=== PATIENT | female | born 1955 | race American Indian/Alaskan Native ===

== ENCOUNTER 2021-02-10 16:02 | Observation (INO) | payer BC ==
[2021-02-10] MEDS ORDERED: cloNIDine 0.2 MG TAB PO ONE (16:34)
--- NOTE | 2021-02-10 17:16 | Emergency Department Report ---
HPI - General Chief Complaint: High BP Time Seen by Provider: 02/10/21 16:34 - HPI HPI: Room 36 The patient is a 65-year-old female present with a chief complaint of hypertension. The patient states over the weekend she developed blurred vision and felt off balance. Patient states she had a few episodes of nausea vomiting. Patient has a history of hypertension but has been off of her antihypertensive for several months secondary to inability to afford them/insurance issues. Patient states she checked her blood pressure at home and got a systolic that range from 170s to 200 prompting her to come to the emergency department. Patient denies eye pain. ED Past Medical Hx - Past Medical History Hx Hypertension: Yes Hx Diabetes: No (Borderline diabetes) - Surgical History Additional Surgical History: x2 - Family History Family history: no significant - Social History Smoking Status: Former Smoker (None times months) Substance Use Type: None (Denies illicit drug use), Alcohol (Frequently) - Medications Home Medications: Home Medications Medication Instructions Recorded Confirmed Last Taken Type No Known Home Medications [No 02/10/21 02/10/21 Unknown History Reported Home Medications] ED Review of Systems ROS: Stated complaint: HIGH B/P WITH BLURRED VISION Other details as noted in HPI Constitutional: no symptoms reported Eyes: vision change ENT: denies: throat pain Respiratory: no symptoms reported Cardiovascular: denies: chest pain Endocrine: no symptoms reported Gastrointestinal: nausea, vomiting Genitourinary: denies: dysuria Musculoskeletal: denies: back pain Neurological: denies: headache, paresthesias Physical Exam - Physical Exam Vital Signs: Vital Signs 02/10/21 02/10/21 02/10/21 16:05 16:45 16:54 Temperature 99.3 F Pulse Rate 106 H 87 Respiratory 19 Rate Blood Pressure 176/100 187/106 Blood Pressure [Left] O2 Sat by Pulse 98 100 Oximetry 02/10/21 02/10/21 16:58 16:59 Temperature 98.3 F 98.3 F Pulse Rate 91 H 98 H Respiratory 14 14 Rate Blood Pressure 187/106 Blood Pressure 187/106 [Left] O2 Sat by Pulse 99 99 Oximetry Physical Exam: GENERAL: The patient is well-developed well-nourished female lying on stretcher not appearing to be in acute distress. [] HEENT: Normocephalic. Atraumatic. Extraocular motions are intact except OS will not adduct past midline. Patient has moist mucous membranes. NECK: Supple. Trachea midline CHEST/LUNGS: Clear to auscultation. There is no respiratory distress noted. HEART/CARDIOVASCULAR: Regular. There is no tachycardia. There is no gallop rub or murmur. ABDOMEN: Abdomen is soft, nontender. Patient has normal bowel sounds. There is no abdominal distention. SKIN: There is no rash. There is no edema. There is no diaphoresis. NEURO: The patient is awake, alert, and oriented. The patient is cooperative. Cranial nerves II through XII grossly intact except OS does not adduct past midline. Normal sensation to light touch throughout. Patient is able to hold either upper extremity at 45 degree angle for 10-second count without drift. Patient is able to hold either lower extremity at 30 degree angle for 5-second count without drift. The patient has normal speech. GCS 15 NIHSS= 1 MUSCULOSKELETAL: There is no evidence of acute injury. ED Course Vital Signs 02/10/21 02/10/21 02/10/21 16:05 16:45 16:54 Temperature 99.3 F Pulse Rate 106 H 87 Respiratory 19 Rate Blood Pressure 176/100 187/106 Blood Pressure [Left] O2 Sat by Pulse 98 100 Oximetry 02/10/21 02/10/21 16:58 16:59 Temperature 98.3 F 98.3 F Pulse Rate 91 H 98 H Respiratory 14 14 Rate Blood Pressure 187/106 Blood Pressure 187/106 [Left] O2 Sat by Pulse 99 99 Oximetry ED Medical Decision Making - Lab Data Result diagrams: 02/10/21 17:09 02/10/21 17:09 Laboratory Tests 02/10/21 02/10/21 02/10/21 17:09 17:09 17:09 WBC 7.0 RBC 4.32 Hgb 13.3 Hct 40.8 MCV 94 MCH 31 MCHC 33 RDW 13.3 Plt Count 190 Lymph % (Auto) 38.9 H [place] % (Auto) 7.9 H Eos % (Auto) 0.4 Baso % (Auto) 0.0 Lymph # (Auto) 2.7 [place] # (Auto) 0.5 Eos # (Auto) 0.0 Baso # (Auto) 0.0 Seg Neutrophils % 52.8 Seg Neutrophils # 3.7 PT 14.1 INR 0.98 APTT 27.2 Thrombin Time 18.1 Sodium 144 Potassium 3.7 Chloride 106.1 Carbon Dioxide 22 Anion Gap 20 BUN 16 Creatinine 0.9 Estimated GFR > 60 BUN/Creatinine Ratio 18 Glucose 114 H Calcium 9.4 - EKG Data -: EKG Interpreted by Md EKG shows normal: sinus rhythm Rate: normal - EKG Data When compared to previous EKG there are: previous EKG unavailable Interpretation: other (No ischemic changes seen) - Radiology Data Radiology results: report reviewed (CT head), image reviewed (CT head) [facility] [address] [place] [address] Cat Scan Report Signed Patient: TOMASA AL MR#: [id number] : 1955 Acct:[id number] Age/Sex: 65 / F ADM Date: 02/10/21 Loc: ED Attending Dr: Ordering Physician: ZITA HUGHES MD Date of Service: 02/10/21 Procedure(s): CT head/brain wo con Accession Number(s): [id number] cc: ZITA HUGHES MD . CT head/brain wo con INDICATION / CLINICAL INFORMATION: 65 years Female; HTN, poor left eye adduction, possible MANAN. TECHNIQUE: Routine CT head without contrast. All CT scans at this location are performed using CT dose reduction for ALARA by means of automated exposure control. COMPARISON: None. FINDINGS: BRAIN / INTRACRANIAL CONTENTS: No acute hemorrhage, mass effect, midline shift, hydrocephalus, or acute, large territorial infarct. Mild, diffuse cerebral and cerebellar atrophy. There are moderate areas of decreased attenuation in the white matter of the cerebral hemispheres, as well as the gangliocapsular regions. These are nonspecific findings and may be related to microangiopathy (hypertension, diabetes, atherosclerosis), given the patient's age. It might be difficult to evaluate for small areas of ischemia without diffusion imaging by MRI. Pontine disease noted. CRANIOCERVICAL JUNCTION: No significant abnormality. ORBITS: No significant abnormality of visualized orbits. SINUSES / MASTOIDS: Mild mucosal thickening in the ethmoids. ADDITIONAL FINDINGS: No significant atherosclerotic disease appreciated. IMPRESSION: 1. No focal mass, hemorrhage, hydrocephalus, or acute, large territorial infarct. Follow-up with diffusion imaging by MRI, as clinically warranted. Signer Name: Mikel Altamirano MD, III Signed: 02/10/2021 6:00 PM Workstation Name: [email or web address] Transcribed By: HR Dictated By: Mikel Altamirano MD Electronically Authenticated By: Mikel Altamirano MD Signed Date/Time: 02/10/211799 DD/ 57 TD/TT: Print Cancel - Differential Diagnosis Internuclear ophthalmoplegia, hypertensive urgency Critical care attestation.: If time is entered above; I have spent that time in minutes in the direct care of this critically ill patient, excluding procedure time. 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 Gómez))
[2021-02-10 17:56] LABS: INR 0.98 (0.87-1.13)
[2021-02-10 17:57] LABS: Eosinophils % (Auto) 0.4 % (0.0-4.3); Hematocrit 40.8 % (30.3-42.9); Hemoglobin 13.3 gm/dl (10.1-14.3); Lymphocytes # (Auto) 2.7 K/mm3 (1.2-5.4); Lymphocytes % (Auto) 38.9 % (13.4-35.0); Mean Corpuscular HGB Conc 33 % (30-34); Mean Corpuscular Volume 94 fl (79-97); Monocytes # (Auto) 0.5 K/mm3 (0.0-0.8); Monocytes % (Auto) 7.9 % (0.0-7.3); Partial Thromboplastin Time 27.2 Sec. (24.2-36.6); Platelet Count 190 K/mm3 (140-440); Red Blood Count 4.32 M/mm3 (3.65-5.03); Red Cell Distribution Width 13.3 % (13.2-15.2); Thrombin Time 18.1 Sec. (15.1-19.6)
[2021-02-10 17:59] LABS: BUN/Creatinine Ratio 18; Blood Urea Nitrogen 16 mg/dL (7-17); Calcium 9.4 mg/dL (8.4-10.2); Hemolysis Index 6
--- NOTE | 2021-02-10 18:04 | Cat Scan Report ---
. CT head/brain wo con INDICATION / CLINICAL INFORMATION: 65 years Female; HTN, poor left eye adduction, possible MANAN. TECHNIQUE: Routine CT head without contrast. All CT scans at this location are performed using CT dos e reduction for ALARA by means of automated exposure control. COMPARISON: None. FINDINGS: BRAIN / INTRACRANIAL CONTENTS: No acute hemorrhage, mass effect, midline shift, hydrocephalus, or acu te, large territorial infarct. Mild, diffuse cerebral and cerebellar atrophy. There are moderate areas of decreased attenuation in the white matter of the cerebral hemispheres, as well as the gangliocapsular regions. These are nonspecific findings and may be related to microangio giorgi (hypertension, diabetes, atherosclerosis), given the patient's age. It might be difficult to ev aluate for small areas of ischemia without diffusion imaging by MRI. Pontine disease noted. CRANIOCERVICAL JUNCTION: No significant abnormality. ORBITS: No significant abnormality of visualized orbits. SINUSES / MASTOIDS: Mild mucosal thickening in the ethmoids. ADDITIONAL FINDINGS: No significant atherosclerotic disease appreciated. IMPRESSION: 1. No focal mass, hemorrhage, hydrocephalus, or acute, large territorial infarct. Follow-up with diff usion imaging by MRI, as clinically warranted. Signer Name: Mikel Altamirano MD, III Signed: 02/10/2021 6:00 PM Workstation Name: [email or web address]
[2021-02-10] MEDS ORDERED: ASPIRIN 325 MG TAB PO ONE (18:54)
[2021-02-10] MEDS ORDERED: METOCLOPRAMIDE 10 MG/2 ML INJ IV PRN (20:36)
[2021-02-10] MEDS ORDERED: oxyCODONE /ACETAMINOPHEN 5-325MG TAB PO PRN (20:36)
[2021-02-10] MEDS ORDERED: ACETAMINOPHEN 325 MG TAB PO PRN (20:36)
[2021-02-10] MEDS ORDERED: ONDANSETRON 4 MG/2 ML INJ IV PRN (20:36)
[2021-02-10] MEDS ORDERED: hydrALAZINE 20 MG/1 ML INJ IV PRN (20:41)
--- NOTE | 2021-02-10 20:43 | History and Physical Report ---
History of Present Illness Date of examination: 02/10/21 Date of admission: 02/10/21 18:56 Chief complaint: Off-balance and blurred vision for 3 days History of present illness: The patient is a 65-year-old female present with a chief complaint of hypertension. The patient states over the weekend she developed blurred vision and felt off balance. Patient states she had a few episodes of nausea vomiting. Patient has a history of hypertension but has been off of her antihypertensive for several months secondary to inability to afford them/insurance issues. Patiriley nt states she checked her blood pressure at home and got a systolic that range from 170s to 200 prompting her to come to the emergency department. Patient denies eye pain. - Past Medical History --Hypertension: Yes --Diabetes: No (Borderline diabetes) - Surgical History Additional Surgical History: x2 - Family History Family history: no significant - Social History Smoking Status: Former Smoker (None times months) Substance Use Type: None (Denies illicit drug use), Alcohol (Frequently) - Medications Home Medications: Home Medications Medication Instructions Recorded Confirmed Last Taken Type No Known Home Medications [No 02/10/21 02/10/21 Unknown History Reported Home Medications] Review of Systems ROS: Stated complaint: HIGH B/P WITH BLURRED VISION Other details as noted in HPI Constitutional: no symptoms reported Eyes: vision change ENT: denies: throat pain Respiratory: no symptoms reported Cardiovascular: denies: chest pain Endocrine: no symptoms reported Gastrointestinal: nausea, vomiting Genitourinary: denies: dysuria Musculoskeletal: denies: back pain Neurological: denies: headache, paresthesias Medications and Allergies Allergies Allergy/AdvReac Type Severity Reaction Status Date / Time No Known Allergies Allergy Verified 02/10/21 17:00 Home Medications Medication Instructions Recorded Confirmed Last Taken Type No Known Home Medications [No 02/10/21 02/10/21 Unknown History Reported Home Medications] Exam - Constitutional Vitals: Temp Pulse Resp BP Pulse Ox 98.2 F 56 L 20 172/85 98 02/10/21 19:55 02/10/21 19:55 02/10/21 19:55 02/10/21 19:55 02/10/21 19:55 General appearance: Present: no acute distress, well-nourished - EENT Eyes: Present: PERRL ENT: hearing intact, clear oral mucosa - Neck Neck: Present: supple, normal ROM - Respiratory Respiratory effort: normal Respiratory: bilateral: CTA - Cardiovascular Heart rate: 78 Rhythm: regular Heart Sounds: Present: S1 & S2. Absent: rub, click - Extremities Extremities: pulses symmetrical, No edema Peripheral Pulses: within normal limits - Abdominal General gastrointestinal: Present: soft, non-tender, non-distended, normal bowel sounds Female genitourinary: Present: normal - Integumentary Integumentary: Present: clear, warm, dry - Musculoskeletal Musculoskeletal: gait normal, strength equal bilaterally - Psychiatric Psychiatric: appropriate mood/affect, intact judgment & insight - Neurologic Neurologic: CNII-XII intact, moves all extremities - Allied Health Allied health notes reviewed: nursing, case management HEART Score - HEART Score Age: 45-65 Risk factors: 1-2 risk factors Troponin: < normal limit - Critical Actions Critical Actions: 0-3 pts:0.9-1.7%risk of adverse cardiac event.Candidate for discharge Results - Labs CBC & Chem 7: 02/10/21 17:09 02/10/21 17:09 Labs: Laboratory Last Values WBC 7.0 K/mm3 (4.5-11.0) 02/10/21 17:09 RBC 4.32 M/mm3 (3.65-5.03) 02/10/21 17:09 Hgb 13.3 gm/dl (10.1-14.3) 02/10/21 17:09 Hct 40.8 % (30.3-42.9) 02/10/21 17:09 MCV 94 fl (79-97) 02/10/21 17:09 MCH 31 pg (28-32) 02/10/21 17:09 MCHC 33 % (30-34) 02/10/21 17:09 RDW 13.3 % (13.2-15.2) 02/10/21 17:09 Plt Count 190 K/mm3 (140-440) 02/10/21 17:09 Lymph % (Auto) 38.9 % (13.4-35.0) H 02/10/21 17:09 [place] % (Auto) 7.9 % (0.0-7.3) H 02/10/21 17:09 Eos % (Auto) 0.4 % (0.0-4.3) 02/10/21 17:09 Baso % (Auto) 0.0 % (0.0-1.8) 02/10/21 17:09 Lymph # (Auto) 2.7 K/mm3 (1.2-5.4) 02/10/21 17:09 [place] # (Auto) 0.5 K/mm3 (0.0-0.8) 02/10/21 17:09 Eos # (Auto) 0.0 K/mm3 (0.0-0.4) 02/10/21 17:09 Baso # (Auto) 0.0 K/mm3 (0.0-0.1) 02/10/21 17:09 Seg Neutrophils % 52.8 % (40.0-70.0) 02/10/21 17:09 Seg Neutrophils # 3.7 K/mm3 (1.8-7.7) 02/10/21 17:09 PT 14.1 Sec. (12.2-14.9) 02/10/21 17:09 INR 0.98 (0.87-1.13) 02/10/21 17:09 APTT 27.2 Sec. (24.2-36.6) 02/10/21 17:09 Thrombin Time 18.1 Sec. (15.1-19.6) 02/10/21 17:09 Sodium 144 mmol/L (137-145) 02/10/21 17:09 Potassium 3.7 mmol/L (3.6-5.0) 02/10/21 17:09 Chloride 106.1 mmol/L (98-107) 02/10/21 17:09 Carbon Dioxide 22 mmol/L (22-30) 02/10/21 17:09 Anion Gap 20 mmol/L 02/10/21 17:09 BUN 16 mg/dL (7-17) 02/10/21 17:09 Creatinine 0.9 mg/dL (0.6-1.2) 02/10/21 17:09 Estimated GFR > 60 ml/min 02/10/21 17:09 BUN/Creatinine Ratio 18 % 02/10/21 17:09 Glucose 114 mg/dL (65-100) H 02/10/21 17:09 Calcium 9.4 mg/dL (8.4-10.2) 02/10/21 17:09 Short CBC 02/10/21 Range/Units 17:09 WBC 7.0 (4.5-11.0) K/mm3 Hgb 13.3 (10.1-14.3) gm/dl Hct 40.8 (30.3-42.9) % Plt Count 190 (140-440) K/mm3 [facility] 02/10/21 17:09 Sodium 144 Potassium 3.7 Chloride 106.1 Carbon Dioxide 22 BUN 16 Creatinine 0.9 Glucose 114 H Calcium 9.4 Short CBC 02/10/21 Range/Units 17:09 WBC 7.0 (4.5-11.0) K/mm3 Hgb 13.3 (10.1-14.3) gm/dl Hct 40.8 (30.3-42.9) % Plt Count 190 (140-440) K/mm3 [facility] 02/10/21 17:09 Sodium 144 Potassium 3.7 Chloride 106.1 Carbon Dioxide 22 BUN 16 Creatinine 0.9 Glucose 114 H Calcium 9.4 - Imaging and Cardiology Imaging and Cardiology: hCG No focal acute findings Assessment and Plan Advance Directives: Yes (Full code) VTE prophylaxis?: Chemical Plan of care discussed with patient/family: Yes - Patient Problems (1) Hypertensive emergency Current Visit: Yes Status: Acute Plan to address problem: Patient is noncompliant with her medications Patient started on valsartan 160 every 12 hours Patient started on Coreg 6.25 every 12 hours Patient also initiated on IV hydralazine 10 mg every 3 hours as needed (2) TIA (transient ischemic attack) Current Visit: Yes Status: Acute Plan to address problem: Complains of blurred vision and possible diplopia when looking to the left side Possible internuclear ophthalmoplegia Neurology consult requested Echocardiogram and carotid duplex scan (3) Internuclear ophthalmoplegia of left eye Current Visit: Yes Status: Acute Plan to address problem: Doubt the diagnosis of internuclear ophthalmoplegia Patient does not have constant diplopia on looking to the left right We will defer to neurology (4) T2DM (type 2 diabetes mellitus) Current Visit: Yes Status: Chronic Qualifiers: Diabetes mellitus care home insulin use: unspecified care home insulin use status Plan to address problem: Coverage for now Check hemoglobin A1c (5) DVT prophylaxis Current Visit: Yes Status: Acute Plan to address problem: On anticoagulation GI prophylaxis
[2021-02-10] MEDS: VALSARTAN 160MG TAB PO SCH (21:34)
[2021-02-10] MEDS: FAMOTIDINE 20 MG TAB PO SCH (21:35)
[2021-02-10] MEDS: carvediloL 6.25 MG TAB PO SCH (21:44)
[2021-02-10] MEDS: HEPARIN 5,000 UNIT/1 ML VIAL SUB-Q SCH (21:45)
[2021-02-11 06:25] LABS: Eosinophils % (Auto) 0.7 % (0.0-4.3); Hematocrit 36.7 % (30.3-42.9); Hemoglobin 12.2 gm/dl (10.1-14.3); Lymphocytes % (Auto) 53.3 % (13.4-35.0); Mean Corpuscular HGB Conc 33 % (30-34); Mean Corpuscular Volume 95 fl (79-97); Monocytes # (Auto) 0.4 K/mm3 (0.0-0.8); Monocytes % (Auto) 7.2 % (0.0-7.3); Platelet Count 184 K/mm3 (140-440); Red Blood Count 3.87 M/mm3 (3.65-5.03); Red Cell Distribution Width 12.8 % (13.2-15.2)
[2021-02-11 07:03] LABS: Alanine Aminotransferase 16 units/L (7-56); Albumin 3.7 g/dL (3.9-5); Blood Urea Nitrogen 14 mg/dL (7-17); Calcium 8.9 mg/dL (8.4-10.2); Hemolysis Index 4
[2021-02-11 07:14] LABS: BUN/Creatinine Ratio 20
[2021-02-11] MEDS ORDERED: POTASSIUM CHLORIDE ER 20 MEQ TAB PO SCH (09:00)
[2021-02-11] MEDS: carvediloL 6.25 MG TAB PO SCH ×2 (09:22→21:43)
[2021-02-11] MEDS: FAMOTIDINE 20 MG TAB PO SCH ×2 (09:22→21:44)
[2021-02-11] MEDS: HEPARIN 5,000 UNIT/1 ML VIAL SUB-Q SCH ×2 (09:22→21:44)
[2021-02-11] MEDS: VALSARTAN 160MG TAB PO SCH ×2 (09:24→21:43)
--- NOTE | 2021-02-11 11:43 | Electrocardiograph Report ---
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
--- NOTE | 2021-02-11 13:22 | Vascular Lab Report ---
DUPLEX DOPPLER ULTRASOUND CAROTID, BILATERAL INDICATION / CLINICAL INFORMATION: Blurred vision + hypertensive emergency vs TIA. COMPARISON: None available. FINDINGS: RIGHT CAROTID: Mild calcified atherosclerotic plaque. - PLAQUE ESTIMATE (%): < 50% - CCA velocity: 47 cm/sec. - ICA peak systolic velocity: 73 cm/sec. - ICA/CCA PSV Ratio: Less than 2. Right Vertebral Artery: Antegrade flow. LEFT CAROTID: Mild calcified atherosclerotic plaque. Tortuous ICA. - PLAQUE ESTIMATE (%): < 50% - CCA velocity: 44 cm/sec. - ICA peak systolic velocity: 119 cm/sec. - ICA/CCA PSV Ratio: 2.7 Left Vertebral Artery: Antegrade flow. IMPRESSION: 1. Right Internal Carotid Artery: Less than 50% diameter stenosis. 2. Left Internal Carotid Artery: Less than 50% diameter stenosis. Velocity criteria are extrapolated from diameter data as defined by the Society of Radiologists in Ul trasound Consensus Conference, Radiology 2003; 229;340-346. NO STENOSIS (NORMAL) - Plaque = none; ICA PSV < 125 cm/sec; ICA/CCA PSV Ratio < 2.0 <50% STENOSIS - Plaque < 50%; ICA PSV < 125 cm/sec; ICA/CCA PSV Ratio < 2.0 50-69% STENOSIS - Plaque > 50%; ICA PSV = 125-230 cm/sec; ICA/CCA PSV Ratio = 2.0-4.0 >70% BUT <100% STENOSIS - Plaque > 50%; ICA PSV > 230 cm/sec; ICA/CCA PSV Ratio > 4.0 NEAR OCCLUSION - Plaque = visible lumen; ICA PSV = high/low/none; ICA/CCA PSV Ratio = variable TOTAL OCCLUSION - Plaque = no lumen; ICA PSV = none; ICA/CCA PSV Ratio = N/A Signer Name: Luke Savage MD Signed: 02/11/2021 1:18 PM Workstation Name: [id number]
--- NOTE | 2021-02-11 14:05 | Progress Note ---
Assessment and Plan Assessment and plan: Patient is a 65-year-old female past medical history of uncontrolled hypertension (nonadherent with medications) and prediabetes who presented with blurry vision, nausea, vomiting, and sensations of being "off balance" who presented in the ED and was found to have a systolic blood pressure >200. The patient is being managed for hypertensive emergency versus TIA. #Hypertensive emergency #Medication noncompliance #Medication noncompliance counseling -Significant improvement in overall blood pressure. -Patient admits to medication nonadherence. Patient counseled about importance of medication compliance and possible sequelae. Patient expressed unde rstanding. Time: +10 minutes -Continue valsartan 160 mg every 12 hours, Coreg 6.25 mg every 12 hours, and IV hydralazine 10 mg every 3 hours as needed. -Continue to monitor #Possible TIA #Blurred vision #Possible internuclear ophthalmoplegia of left eye -Pending TTE and carotid Dopplers -Neurology consulted; pending recs -Low clinical suspicion of TIA; however, blurred vision can be secondary to uncontrolled hypertension. Can consider internuclear ophthalmoplegia. -Continue to monitor #Prediabetes -Pending hemoglobin A1c -Blood glucose goal less than 140 while inpatient (if patient still has prediabetes) -Continue to monitor #Advanced care planning -Disease education conducted, care plan discussed, diagnoses discussed, prognosis discussed, and patient acknowledges understanding with care plan -Time: +30 minutes #Discharge planning -If blood pressure remains within normal limits tomorrow, patient can be discharged tomorrow Disposition Plan: Continue medical management. Possible discharge tomorrow. Total Time Spent with Patient (Minutes): 45 minutes History Interval history: No acute events overnight. Hospitalist Physical - Constitutional Vitals: Temp Pulse Resp BP Pulse Ox 98.2 F 47 L 18 146/83 99 02/11/21 08:50 02/11/21 08:50 02/11/21 08:50 02/11/21 08:50 02/11/21 08:50 General appearance: Present: no acute distress, well-nourished - EENT Eyes: Present: PERRL, EOM intact ENT: hearing intact, clear oral mucosa, dentition normal - Neck Neck: Present: supple, normal ROM - Respiratory Respiratory effort: normal Respiratory: bilateral: CTA - Cardiovascular Rhythm: regular Heart Sounds: Present: S1 & S2 - Extremities Extremities: no ischemia, pulses intact, pulses symmetrical, No edema, normal temperature, normal color Peripheral Pulses: within normal limits - Abdominal General gastrointestinal: soft, non-tender, non-distended, normal bowel sounds - Integumentary Integumentary: Present: clear, warm, dry - Psychiatric Psychiatric: appropriate mood/affect, cooperative - Neurologic Neurologic: CNII-XII intact - Allied Health Allied health notes reviewed: nursing HEART Score - HEART Score Age: 45-65 Risk factors: 1-2 risk factors Troponin: < normal limit - Critical Actions Critical Actions: 0-3 pts:0.9-1.7%risk of adverse cardiac event.Candidate for discharge Results - Labs CBC & Chem 7: 02/11/21 05:04 02/11/21 05:04 Labs: Laboratory Last Values WBC 5.7 K/mm3 (4.5-11.0) 02/11/21 05:04 RBC 3.87 M/mm3 (3.65-5.03) 02/11/21 05:04 Hgb 12.2 gm/dl (10.1-14.3) 02/11/21 05:04 Hct 36.7 % (30.3-42.9) 02/11/21 05:04 MCV 95 fl (79-97) 02/11/21 05:04 MCH 32 pg (28-32) 02/11/21 05:04 MCHC 33 % (30-34) 02/11/21 05:04 RDW 12.8 % (13.2-15.2) L 02/11/21 05:04 Plt Count 184 K/mm3 (140-440) 02/11/21 05:04 Lymph % (Auto) 53.3 % (13.4-35.0) H 02/11/21 05:04 [place] % (Auto) 7.2 % (0.0-7.3) 02/11/21 05:04 Eos % (Auto) 0.7 % (0.0-4.3) 02/11/21 05:04 Baso % (Auto) 0.0 % (0.0-1.8) 02/11/21 05:04 Lymph # (Auto) 3.0 K/mm3 (1.2-5.4) 02/11/21 05:04 [place] # (Auto) 0.4 K/mm3 (0.0-0.8) 02/11/21 05:04 Eos # (Auto) 0.0 K/mm3 (0.0-0.4) 02/11/21 05:04 Baso # (Auto) 0.0 K/mm3 (0.0-0.1) 02/11/21 05:04 Seg Neutrophils % 38.8 % (40.0-70.0) L 02/11/21 05:04 Seg Neutrophils # 2.2 K/mm3 (1.8-7.7) 02/11/21 05:04 PT 14.1 Sec. (12.2-14.9) 02/10/21 17:09 INR 0.98 (0.87-1.13) 02/10/21 17:09 APTT 27.2 Sec. (24.2-36.6) 02/10/21 17:09 Thrombin Time 18.1 Sec. (15.1-19.6) 02/10/21 17:09 Sodium 142 mmol/L (137-145) 02/11/21 05:04 Potassium 3.4 mmol/L (3.6-5.0) L 02/11/21 05:04 Chloride 106.0 mmol/L (98-107) 02/11/21 05:04 Carbon Dioxide 21 mmol/L (22-30) L 02/11/21 05:04 Anion Gap 18 mmol/L 02/11/21 05:04 BUN 14 mg/dL (7-17) 02/11/21 05:04 Creatinine 0.7 mg/dL (0.6-1.2) 02/11/21 05:04 Estimated GFR > 60 ml/min 02/11/21 05:04 BUN/Creatinine Ratio 20 % 02/11/21 05:04 Glucose 113 mg/dL (65-100) H 02/11/21 05:04 Calcium 8.9 mg/dL (8.4-10.2) 02/11/21 05:04 Total Bilirubin 0.40 mg/dL (0.1-1.2) 02/11/21 05:04 AST 21 units/L (5-40) 02/11/21 05:04 ALT 16 units/L (7-56) 02/11/21 05:04 Alkaline Phosphatase 80 units/L (35-129) 02/11/21 05:04 Total Protein 6.0 g/dL (6.3-8.2) L 02/11/21 05:04 Albumin 3.7 g/dL (3.9-5) L 02/11/21 05:04 Albumin/Globulin Ratio 1.6 % 02/11/21 05:04 Bae/IV: Voiding Method Toilet Active Medications - Current Medications Current Medications: Generic Name Dose Route Start Last Admin Trade Name Freq PRN Reason Stop Dose Admin Acetaminophen 650 mg 02/10/21 20:36 Acetaminophen 325 Mg Tab PO Q4H PRN Pain MILD(1-3)/Fever >100.5/[place] Carvedilol 6.25 mg 02/10/21 22:00 02/11/21 09:22 Carvedilol 6.25 Mg Tab PO 6.25 mg BID KIM Administration Famotidine 20 mg 02/10/21 22:00 02/11/21 09:22 Famotidine 20 Mg Tab PO 20 mg BID KIM Administration Heparin Sodium (Porcine) 5,000 unit 02/10/21 22:00 02/11/21 09:22 Heparin 5,000 Unit/1 Ml Vial SUB-Q 5,000 unit Q12HR KIM Administration Hydralazine HCl 10 mg 02/10/21 20:41 Hydralazine 20 Mg/1 Ml Inj IV Q3H PRN Blood Pressure Metoclopramide HCl 10 mg 02/10/21 20:36 Metoclopramide 10 Mg/2 Ml Inj IV Q6H PRN Nausea And Vomiting Ondansetron HCl 4 mg 02/10/21 20:36 Ondansetron 4 Mg/2 Ml Inj IV Q8H PRN Nausea And Vomiting Oxycodone/Acetaminophen 1 tab 02/10/21 20:36 Oxycodone /Acetaminophen 5-325mg Tab PO Q6H PRN Pain, Moderate (4-6) Sodium Chloride 10 ml 02/10/21 22:00 02/11/21 09:22 Sodium Chloride 0.9% 10 Ml Flush Syringe IV 10 ml BID KIM Administration Sodium Chloride 10 ml 02/10/21 20:36 Sodium Chloride 0.9% 10 Ml Flush Syringe IV PRN PRN LINE FLUSH Valsartan 160 mg 02/10/21 21:00 02/11/21 09:24 Valsartan 160mg Tab PO 160 mg Q12H KIM Administration
--- NOTE | 2021-02-11 15:59 | Consultation ---
History of Present Illness Consult date: 02/11/21 Chief complaint: She patient is a 65-year-old female present with a chief complaint of hypertension. The patient states over the weekend she developed blurred vision and felt off balance. Patient states she had a few episodes of nausea vomiting. Patient has a history of hypertension but has been off of her antihypertensive for several months secondary to inability to afford them/insurance issues. Patient states she checked her blood pressure at home and got a systolic that range from 170s to 200 prompting her to come to the emergency department. Patient denies eye pain. Complains of Vision issues , there is left eye droppy eye . Medications and Allergies Allergies Allergy/AdvReac Type Severity Reaction Status Date / Time No Known Allergies Allergy Verified 02/10/21 17:00 Home Medications Medication Instructions Recorded Confirmed Last Taken Type Mv-Mn/Folic Acid/Calcium/Vit K 1 tab PO QDAY 02/11/21 02/11/21 02/08/21 History [Women's 50 Plus Multivit Tab] Trolamine Salicylate [Aspercreme] 1 applicatio TP QDAY 02/11/21 02/11/21 02/08/21 History Active Meds: Active Medications Acetaminophen (Acetaminophen 325 Mg Tab) 650 mg PO Q4H PRN PRN Reason: Pain MILD(1-3)/Fever >100.5/[place] Carvedilol (Carvedilol 6.25 Mg Tab) 6.25 mg PO BID [facility] Last Admin: 02/11/21 09:22 Dose: 6.25 mg Documented by: Famotidine (Famotidine 20 Mg Tab) 20 mg PO BID [facility] Last Admin: 02/11/21 09:22 Dose: 20 mg Documented by: Heparin Sodium (Porcine) (Heparin 5,000 Unit/1 Ml Vial) 5,000 unit SUB-Q Q12HR [facility] Last Admin: 02/11/21 09:22 Dose: 5,000 unit Documented by: Hydralazine HCl (Hydralazine 20 Mg/1 Ml Inj) 10 mg IV Q3H PRN PRN Reason: Blood Pressure Metoclopramide HCl (Metoclopramide 10 Mg/2 Ml Inj) 10 mg IV Q6H PRN PRN Reason: Nausea And Vomiting Ondansetron HCl (Ondansetron 4 Mg/2 Ml Inj) 4 mg IV Q8H PRN PRN Reason: Nausea And Vomiting Oxycodone/Acetaminophen (Oxycodone /Acetaminophen 5-325mg Tab) 1 tab PO Q6H PRN PRN Reason: Pain, Moderate (4-6) Sodium Chloride (Sodium Chloride 0.9% 10 Ml Flush Syringe) 10 ml IV BID [facility] Last Admin: 02/11/21 09:22 Dose: 10 ml Documented by: Sodium Chloride (Sodium Chloride 0.9% 10 Ml Flush Syringe) 10 ml IV PRN PRN PRN Reason: LINE FLUSH Valsartan (Valsartan 160mg Tab) 160 mg PO Q12H [facility] Last Admin: 02/11/21 09:24 Dose: 160 mg Documented by: Physical Examination - Vital Signs Vital Signs: Vital Signs Temp Pulse Resp BP Pulse Ox 99.3 F 106 H 19 176/100 98 02/10/21 16:05 02/10/21 16:05 02/10/21 16:05 02/10/21 16:05 02/10/21 16:05 - Physical Exam Narrative exam: The patient is alert , Left eye droppy , < ? paresis of 6 th nerve diffcult to clearly see on Examination , Gait is Broad Based . Results - Laboratory Findings CBC and BMP: 02/11/21 05:04 02/11/21 05:04 Abnormal Lab Findings: Abnormal Labs 02/10/21 02/10/21 02/11/21 17:09 17:09 05:04 RDW 12.8 L Lymph % (Auto) 38.9 H 53.3 H [place] % (Auto) 7.9 H Seg Neutrophils % 38.8 L Potassium Carbon Dioxide Glucose 114 H Total Protein Albumin 02/11/21 05:04 RDW Lymph % (Auto) [place] % (Auto) Seg Neutrophils % Potassium 3.4 L Carbon Dioxide 21 L Glucose 113 H Total Protein 6.0 L Albumin 3.7 L Assessment and Plan 1. CVA - ? Fiordaliza ? VBI . 2. Needs CTA Brain and Neck W/WO since the patient cannot tolerate a MRI Brain . 3. Risk Factors of CVA - Needs ASA 81 mg + Plavix 75 mg once a day if the CTA is positive. 4. BP Management . 5. Needs a out patient Neuro-opthal consult . 6. Follow up in am. DR. Chávez
[2021-02-12 07:57] LABS: BUN/Creatinine Ratio 23; Blood Urea Nitrogen 18 mg/dL (7-17); Calcium 9.2 mg/dL (8.4-10.2); Hemolysis Index 4
--- NOTE | 2021-02-12 10:20 | Cat Scan Report ---
CT angio head, CT angio neck INDICATION / CLINICAL INFORMATION: 65 years Female; CVA OMNI 350 100 ML. TECHNIQUE: Unenhanced CT of the head initially performed. Thin cut axial images obtained through the head and neck during IV bolus contrast administration. Sagittal, coronal, and 3 plane MIP reconstruct ions performed by the technologist. NASCET type criteria used evaluate stenoses. Automated exposure c ontrol utilized for radiation reduction purposes. . CTA HEAD COMPARISON: None available. FINDINGS: INTERNAL CAROTID ARTERIES: No significant narrowing appreciated. VERTEBROBASILAR SYSTEM: No significant narrowing appreciated. DISTAL BRANCHES: Distal branches of the anterior, middle, and posterior cerebral arteries are fairly symmetric in appearance and number. ANEURYSM: None identified. ADDITIONAL FINDINGS: Remainder of the surrounding soft tissues are grossly normal. IMPRESSION: No significant abnormality on this CTA of the head. CTA NECK COMPARISON: None available. FINDINGS: ARCH: Normal aortic arch branching suggested. CAROTID ARTERIES: The visualized common and internal carotid arteries are widely patent. No stenoses in the carotid bifurcations VERTEBRAL ARTERIES: Codominant vertebral system seen. No significant stenosis appreciated. ADDITIONAL FINDINGS: Remainder of the surrounding soft tissues are grossly normal. IMPRESSION: No significant stenosis appreciated on this CTA of the neck. Signer Name: Lois Fitch MD Signed: 02/12/2021 10:16 AM Workstation Name: [id number]
[2021-02-12] MEDS: carvediloL 6.25 MG TAB PO SCH (10:32)
[2021-02-12] MEDS: VALSARTAN 160MG TAB PO SCH (10:33)
[2021-02-12] MEDS: HEPARIN 5,000 UNIT/1 ML VIAL SUB-Q SCH (10:33)
[2021-02-12] MEDS: FAMOTIDINE 20 MG TAB PO SCH (10:33)
--- NOTE | 2021-02-12 11:17 | Progress Note ---
Assessment and Plan Assessment and plan: Patient is a 65-year-old female past medical history of uncontrolled hypertension (nonadherent with medications) and prediabetes who presented with blurry vision, nausea, vomiting, and sensations of being "off balance" who presented in the ED and was found to have a systolic blood pressure >200. The patient is being managed for hypertensive emergency versus TIA. #Hypertensive emergency #Medication noncompliance #Medication noncompliance counseling -Significant improvement in overall blood pressure. -Patient admits to medication nonadherence. Patient counseled about importance of medication compliance and possible sequelae. Patient expressed understanding. Time: +10 minutes -Continue valsartan 160 mg every 12 hours, Coreg 6.25 mg every 12 hours, and IV hydralazine 10 mg every 3 hours as needed. -Continue to monitor #Possible TIA #Blurred vision #Possible internuclear ophthalmoplegia of left eye -Pending TTE and carotid Dopplers -Neurology consulted; pending recs -Low clinical suspicion of TIA; however, blurred vision can be secondary to uncontrolled hypertension. Can consider internuclear ophthalmoplegia. -Continue to monitor #Prediabetes -Pending hemoglobin A1c -Blood glucose goal less than 140 while inpatient (if patient still has prediabetes) -Continue to monitor #Advanced care planning -Disease education conducted, care plan discussed, diagnoses discussed, pro gnosis discussed, and patient acknowledges understanding with care plan -Time: +30 minutes #Discharge planning -If blood pressure remains within normal limits tomorrow, patient can be discharged tomorrow Disposition Plan: Continue medical management. Possible discharge tomorrow. Total Time Spent with Patient (Minutes): 45 minutes 12/7We will adjust blood pressure for better control,. Unfortunately due to bradycardia cannot adjust Coreg. Will likely start low-dose amlodipine. CTA is negative for any acute pathology. Doubt Padron's palsy. Unfortunately cannot discharge the patient today as she is significantly unsteady on her feet awaiting PT OT evaluation for safe discharge of also discussed with the patient importance of follow-up with a neuro toll relief operator outpatient and possibly have an MRI outpatient as she is claustrophobic severely History Interval history: Patient seen and examined today no acute distress remains with the left eye appears mildly swollen but no edema noted. She still reports unsteady gait blood pressure still uncontrolled Hospitalist Physical - Physical exam Narrative exam: General appearance: Present: no acute distress, well-nourished - EENT Eyes: Present: PERRL, EOM intact left eye with periorbital swelling no edema droopy. ENT: hearing intact, clear oral mucosa, dentition normal - Neck Neck: Present: supple, normal ROM - Respiratory Respiratory effort: normal Respiratory: bilateral: CTA - Cardiovascular Rhythm: regular Heart Sounds: Present: S1 & S2 - Extremities Extremities: no ischemia, pulses intact, pulses symmetrical, No edema, normal temperature, normal color Peripheral Pulses: within normal limits - Abdominal General gastrointestinal: soft, non-tender, non-distended, normal bowel sounds - Integumentary Integumentary: Present: clear, warm, dry - Psychiatric Psychiatric: appropriate mood/affect, cooperative - Neurologic Neurologic: CNII-XII intact - Allied Health Allied health notes reviewed: nursing - Constitutional Vitals: Temp Pulse Resp BP Pulse Ox 98.7 F 58 L 19 173/83 93 02/12/21 08:16 02/12/21 10:32 02/12/21 08:16 02/12/21 10:32 02/12/21 08:16 General appearance: Present: no acute distress, well-nourished HEART Score - HEART Score Age: 45-65 Risk factors: 1-2 risk factors Troponin: < normal limit - Critical Actions Critical Actions: 0-3 pts:0.9-1.7%risk of adverse cardiac event.Candidate for discharge Results - Labs CBC & Chem 7: 02/11/21 05:04 02/12/21 04:42 Labs: Laboratory Last Values WBC 5.7 K/mm3 (4.5-11.0) 02/11/21 05:04 RBC 3.87 M/mm3 (3.65-5.03) 02/11/21 05:04 Hgb 12.2 gm/dl (10.1-14.3) 02/11/21 05:04 Hct 36.7 % (30.3-42.9) 02/11/21 05:04 MCV 95 fl (79-97) 02/11/21 05:04 MCH 32 pg (28-32) 02/11/21 05:04 MCHC 33 % (30-34) 02/11/21 05:04 RDW 12.8 % (13.2-15.2) L 02/11/21 05:04 Plt Count 184 K/mm3 (140-440) 02/11/21 05:04 Lymph % (Auto) 53.3 % (13.4-35.0) H 02/11/21 05:04 [place] % (Auto) 7.2 % (0.0-7.3) 02/11/21 05:04 Eos % (Auto) 0.7 % (0.0-4.3) 02/11/21 05:04 Baso % (Auto) 0.0 % (0.0-1.8) 02/11/21 05:04 Lymph # (Auto) 3.0 K/mm3 (1.2-5.4) 02/11/21 05:04 [place] # (Auto) 0.4 K/mm3 (0.0-0.8) 02/11/21 05:04 Eos # (Auto) 0.0 K/mm3 (0.0-0.4) 02/11/21 05:04 Baso # (Auto) 0.0 K/mm3 (0.0-0.1) 02/11/21 05:04 Seg Neutrophils % 38.8 % (40.0-70.0) L 02/11/21 05:04 Seg Neutrophils # 2.2 K/mm3 (1.8-7.7) 02/11/21 05:04 PT 14.1 Sec. (12.2-14.9) 02/10/21 17:09 INR 0.98 (0.87-1.13) 02/10/21 17:09 APTT 27.2 Sec. (24.2-36.6) 02/10/21 17:09 Thrombin Time 18.1 Sec. (15.1-19.6) 02/10/21 17:09 Sodium 142 mmol/L (137-145) 02/12/21 04:42 Potassium 4.1 mmol/L (3.6-5.0) D 02/12/21 04:42 Chloride 104.6 mmol/L (98-107) 02/12/21 04:42 Carbon Dioxide 24 mmol/L (22-30) 02/12/21 04:42 Anion Gap 18 mmol/L 02/12/21 04:42 BUN 18 mg/dL (7-17) H 02/12/21 04:42 Creatinine 0.8 mg/dL (0.6-1.2) 02/12/21 04:42 Estimated GFR > 60 ml/min 02/12/21 04:42 BUN/Creatinine Ratio 23 % 02/12/21 04:42 Glucose 110 mg/dL (65-100) H 02/12/21 04:42 Calcium 9.2 mg/dL (8.4-10.2) 02/12/21 04:42 Phosphorus 3.80 mg/dL (2.5-4.5) 02/12/21 04:42 Magnesium 2.20 mg/dL (1.7-2.3) 02/12/21 04:42 Total Bilirubin 0.40 mg/dL (0.1-1.2) 02/11/21 05:04 AST 21 units/L (5-40) 02/11/21 05:04 ALT 16 units/L (7-56) 02/11/21 05:04 Alkaline Phosphatase 80 units/L (35-129) 02/11/21 05:04 Total Protein 6.0 g/dL (6.3-8.2) L 02/11/21 05:04 Albumin 3.7 g/dL (3.9-5) L 02/11/21 05:04 Albumin/Globulin Ratio 1.6 % 02/11/21 05:04 Bae/IV: Voiding Method Toilet Active Medications - Current Medications Current Medications: Generic Name Dose Route Start Last Admin Trade Name Freq PRN Reason Stop Dose Admin Acetaminophen 650 mg 02/10/21 20:36 Acetaminophen 325 Mg Tab PO Q4H PRN Pain MILD(1-3)/Fever >100.5/[place] Carvedilol 6.25 mg 02/10/21 22:00 02/12/21 10:32 Carvedilol 6.25 Mg Tab PO 6.25 mg BID KIM Administration Famotidine 20 mg 02/10/21 22:00 02/12/21 10:33 Famotidine 20 Mg Tab PO 20 mg BID KIM Administration Heparin Sodium (Porcine) 5,000 unit 02/10/21 22:00 02/12/21 10:33 Heparin 5,000 Unit/1 Ml Vial SUB-Q 5,000 unit Q12HR KIM Administration Hydralazine HCl 10 mg 02/10/21 20:41 Hydralazine 20 Mg/1 Ml Inj IV Q3H PRN Blood Pressure Metoclopramide HCl 10 mg 02/10/21 20:36 Metoclopramide 10 Mg/2 Ml Inj IV Q6H PRN Nausea And Vomiting Ondansetron HCl 4 mg 02/10/21 20:36 Ondansetron 4 Mg/2 Ml Inj IV Q8H PRN Nausea And Vomiting Oxycodone/Acetaminophen 1 tab 02/10/21 20:36 Oxycodone /Acetaminophen 5-325mg Tab PO Q6H PRN Pain, Moderate (4-6) Sodium Chloride 10 ml 02/10/21 22:00 02/12/21 10:39 Sodium Chloride 0.9% 10 Ml Flush Syringe IV 10 ml BID KIM Administration Sodium Chloride 10 ml 02/10/21 20:36 Sodium Chloride 0.9% 10 Ml Flush Syringe IV PRN PRN LINE FLUSH Valsartan 160 mg 02/10/21 21:00 02/12/21 10:33 Valsartan 160mg Tab PO 160 mg Q12H KIM Administration
[2021-02-12] MEDS ORDERED: hydrALAZINE 25 MG TAB PO SCH (14:00)
[2021-02-12 15:34] VITALS: BP 166/80
--- NOTE | 2021-02-12 15:49 | Progress Note ---
Subjective Date of service: 02/12/21 Interval history: The CTA Brain and Neck no Stenosis , Agree that she needs a Out Patient Neurology Follow up . Continue the medications and Maintain BP . She can follow up with me in office if she chooses in 1-[address] Chávez Objective - Vital Sign Vital Signs - 12hr 02/12/21 02/12/21 02/12/21 04:15 04:26 08:16 Temperature 98.1 F 98.7 F Pulse Rate 51 L 58 L Respiratory 19 Rate Blood Pressure 164/75 173/83 O2 Sat by Pulse 93 Oximetry 02/12/21 02/12/21 02/12/21 10:00 10:32 11:21 Temperature 98.3 F Pulse Rate 58 L 58 L 56 L Respiratory 18 Rate Blood Pressure 173/83 166/83 O2 Sat by Pulse 93 97 Oximetry 02/12/21 02/12/21 15:27 15:29 Temperature 98.4 F Pulse Rate 61 Respiratory 20 Rate Blood Pressure 178/91 166/80 O2 Sat by Pulse 99 Oximetry - Laboratory Findings CBC and BMP: 02/11/21 05:04 02/12/21 04:42 Abnormal Lab Findings: Abnormal Labs 02/10/21 02/10/21 02/11/21 17:09 17:09 05:04 RDW 12.8 L Lymph % (Auto) 38.9 H 53.3 H [place] % (Auto) 7.9 H Seg Neutrophils % 38.8 L Potassium Carbon Dioxide BUN Glucose 114 H Total Protein Albumin 02/11/21 02/12/21 05:04 04:42 RDW Lymph % (Auto) [place] % (Auto) Seg Neutrophils % Potassium 3.4 L Carbon Dioxide 21 L BUN 18 H Glucose 113 H 110 H Total Protein 6.0 L Albumin 3.7 L
--- NOTE | 2021-02-13 06:54 | Discharge Summary ---
Providers - Providers Date of Admission: 02/10/21 18:56 Attending physician: LEE RICK MD 02/11/21 08:18 Consult to Physician [CONS] Routine Comment: Consulting Provider: FILOMENA PHILIP Physician Instructions: Reason For Exam: Blurred vision with hypertensive emergency 02/12/21 08:36 Occupational Therapy Evaluate and Treat [CONS] Routine Comment: Reason For Exam: debility Physical Therapy Evaluation and Treat [CONS] Routine Comment: Reason For Exam: debility Primary care physician: DAVID BROUSSARD Hospitalization Reason for admission: BLURRY VISION Condition: Stable Hospital course: Patient is a 65-year-old female past medical history of uncontrolled hypertension (nonadherent with medications) and prediabetes who presented with blurry vision, nausea, vomiting, and sensations of being "off balance" who presented in the ED and was found to have a systolic blood pressure >200. The patient is being managed for hypertensive emergency versus TIA. #Hypertensive emergency #Medication noncompliance #Medication noncompliance counseling -Significant improvement in overall blood pressure. -Patient admits to medication nonadherence. Patient counseled about importance of medication compliance and possible sequelae. Patient expressed understanding. Time: +10 minutes -Continue valsartan 160 mg every 12 hours, Coreg 6.25 mg every 12 hours, and IV hydralazine 10 mg every 3 hours as needed. -Continue to monitor #Possible TIA #Blurred vision #Possible internuclear ophthalmoplegia of left eye -Pending TTE and carotid Dopplers -Neurology consulted; pending recs -Low clinical suspicion of TIA; however, blurred vision can be secondary to uncontrolled hypertension. Can consider internuclear ophthalmoplegia. -Continue to monitor #Prediabetes -Pending hemoglobin A1c -Blood glucose goal less than 140 while inpatient (if patient still has prediabetes) -Continue to monitor #Advanced care planning -Disease education conducted, care plan discussed, diagnoses discussed, prognosis discussed, and patient acknowledges understanding with care plan -Time: +30 minutes #Discharge planning -If blood pressure remains within normal limits tomorrow, patient can be discharged tomorrow Disposition Plan: Continue medical management. Possible discharge tomorrow. Total Time Spent with Patient (Minutes): 45 minutes 02/12: We will adjust blood pressure for better control,. Unfortunately due to bradycardia cannot adjust Coreg. Will likely start low-dose amlodipine. CTA is negative for any acute pathology. Doubt Padron's palsy. Unfortunately cannot discharge the patient today as she is significantly unsteady on her feet awaiting PT OT evaluation for safe discharge of also discussed with the patient importance of follow-up with a neuro food stand manager outpatient and possibly have an MRI outpatient as she is claustrophobic severely Disposition: 01 HOME / SELF CARE / HOMELESS Final Discharge Diagnosis (Prints w/discharge instructions): Hypertensive emergency WITH BLURRY VISION Time spent for discharge: 35 MINS Core Measure Documentation - Palliative Care Palliative Care/ Comfort Measures: Not Applicable - Core Measures Any of the following diagnoses?: none Exam - Physical Exam Narrative exam: General appearance: Present: no acute distress, well-nourished - EENT Eyes: Present: PERRL, EOM intact left eye with periorbital swelling no edema droopy. ENT: hearing intact, clear oral mucosa, dentition normal - Neck Neck: Present: supple, normal ROM - Respiratory Respiratory effort: normal Respiratory: bilateral: CTA - Cardiovascular Rhythm: regular Heart Sounds: Present: S1 & S2 - Extremities Extremities: no ischemia, pulses intact, pulses symmetrical, No edema, normal temperature, normal color Peripheral Pulses: within normal limits - Abdominal General gastrointestinal: soft, non-tender, non-distended, normal bowel sounds - Integumentary Integumentary: Present: clear, warm, dry - Psychiatric Psychiatric: appropriate mood/affect, cooperative - Neurologic Neurologic: CNII-XII intact - Allied Health Allied health notes reviewed: nursing - Constitutional Vitals: Temp Pulse Resp BP Pulse Ox 98.4 F 61 20 166/80 99 02/12/21 15:27 02/12/21 15:27 02/12/21 15:27 02/12/21 15:29 02/12/21 15:27 Plan Activity: advance as tolerated, fall precautions Diet: low fat Special Instructions: record daily weights, record daily BP diary Care Plan Goals: MUST FOLLOW WITH NEURO-OPTHALMOLOGY Follow up with: PRIMARY MD WENDI [Referring] - 3-5 Days JAK GILL MD [Staff Physician] - 7 Days Prescriptions: amLODIPine 10 mg PO DAILY #30 tab hydroCHLOROthiazide [HCTZ] 25 mg PO QDAY #30 tablet Other Discharge Orders: Home Health Care (Amb) Location: None Selected [facility] (amb) Location: None Selected
== END 2021-02-12 22:55 | disposition home or self-care (01) ==
LOC: ED 16:02 → 4A 18:56 → INTOOBSV 18:56 → 4A 20:28
PROVIDERS: ADMIT Internal Medicine; ATTEND Internal Medicine
DX: I16.0 Hypertensive urgency (principal); G45.9 Transient cerebral ischemic attack, unspecified; H51.22 Internuclear ophthalmoplegia, left eye; I10 Essential (primary) hypertension; E11.9 Type 2 diabetes mellitus without complications; R29.818 Other symptoms and signs involving the nervous system; Z98.891 History of uterine scar from previous surgery; Z87.891 Personal history of nicotine dependence
CPT/HCPCS: 36415; 70450; 70496; 70498; 80048; 80053; 83735; 84100; 85025; 85610; 85670; 85730; 93005; 93306; 93880; 96372; 97166; 97535; 99285; G0378; J1644; Q9967